=== PATIENT | male | born 1950 | race Caucasian/White ===

== ENCOUNTER → 2016-10-19 | Outpatient (CLI) | payer MEDICARE, OTHER ==
[~2016-10-19] MED LIST: AMARYL4 MG PO; BETAPACE (GENER80 MG PO; BUMETANIDE2 MG PO; COLCHICINE0.6 MG PO; COREG 3.1253.125 MG PO; DIAMOX SEQUE500 MG PO; DIAMOX250 MG PO; ECOTRIN325 MG PO; ELIQUIS2.5 MG PO; KLOR-CON M2020 MEQ PO; LASIX40 MG PO; LEVEMIR FL100 UNIT/1 SUB-Q; LEVOTHROID (SY50 MCG PO; MAG-OX-400(241400 MG PO; NITROSTAT0.4 MG SL; PEPCID20 MG PO; ZOCOR40 MG PO; ZOLOFT25 MG PO; ZOLOFT50 MG PO; ZYLOPRIM300 MG PO
[2016-10-19 15:52] LABS: ALBUMIN 3.7 gm/dL (3.5-5.0); ANION GAP 13.4 (10.0-19.0); CALCIUM 8.6 mg/dL (8.5-10.5); CREATININE 1.9 mg/dL (0.6-1.3); MAGNESIUM 2.2 mg/dL (1.3-2.6); POTASSIUM 4.4 mMol/L (3.7-5.1)
== END | disposition disaster alternative care site (69) ==
LOC: LCNC 15:04
PROVIDERS: Internal Medicine Interventional Cardiology
DX: M79.671 Pain in right foot (principal)

== ENCOUNTER → 2016-12-14 | Outpatient (CLI) | payer MEDICARE, OTHER ==
[2016-12-14 15:33] LABS: BASOPHIL # 0.1 K/uL (0.0-0.2); BASOPHIL % 1.3 %; EOSINOPHIL # 0.6 K/uL (0.0-0.5); EOSINOPHIL % 8.2 %; HEMATOCRIT 45.4 % (37.0-53.0); HEMOGLOBIN 15.3 g/dL (11.0-16.0); IMMATURE GRANULOCYTE % 0.4 %; LYMPHOCYTE # 0.9 K/uL (0.8-4.0); LYMPHOCYTE % 12.2 %; MCH 31.2 pg (27.0-34.0); MCHC 33.7 gm/dL (32.0-36.5); MCV 92.7 fl (83.0-98.0); MONOCYTE # 0.8 K/uL (0.0-1.0); MPV 10.3 fl (9.4-12.4); NEUTROPHIL # (ANC) 4.7 K/uL (1.4-9.0); NEUTROPHIL % 66.9 %; NRBC % 0 /100WBC (0-0.00); PLATELET COUNT 281 K/uL (150-450); RDW-CV 15.4 % (11.9-14.6)
[2016-12-14 15:42] LABS: ALBUMIN 3.8 gm/dL (3.5-5.0); ANION GAP 12.9 (10.0-19.0); CALCIUM 8.9 mg/dL (8.5-10.5); CREATININE 1.9 mg/dL (0.6-1.3); MAGNESIUM 2.1 mg/dL (1.8-2.6); PHOSPHORUS 3.7 mg/dL (2.5-4.9); POTASSIUM 3.9 mMol/L (3.7-5.1)
== END | disposition disaster alternative care site (69) ==
LOC: LCNC 15:28
PROVIDERS: Internal Medicine Interventional Cardiology
DX: R53.82 Chronic fatigue, unspecified (principal); I25.5 Ischemic cardiomyopathy

== ENCOUNTER → 2017-01-25 | Outpatient (CLI) | payer MEDICARE, OTHER | END | disposition disaster alternative care site (69) | LOC: GDIC 09:07 | DX: E11.65 Type 2 diabetes mellitus with hyperglycemia (principal) | CPT/HCPCS: G0108 ==